=== PATIENT | female | born 1945 | race Caucasian/White ===

== ENCOUNTER → 2019-03-12 | Outpatient (CLI) | payer MEDICARE, OTHER ==
--- NOTE | 2019-03-12 10:06 | Diagnostic Imaging Report ---
Exam: Ultrasound abdomen limited. DATE: March 12, 2019. INDICATION: 73-year-old female, evaluation for umbilical hernia. COMPARISON: None. FINDINGS: Targeted ultrasound evaluation at the level of the umbilicus was performed. There appears to be an anterior abdominal wall hernia defect measured at approximately 1.1 cm in width. There is herniation of fat through the defect. There is no clear bowel wall signature identified. IMPRESSION: 1. There does appear to be a fat-containing umbilical hernia. Overall evaluation would be significantly improved with CT imaging if needed. Dictated by: Dictated on workstation # [id number]
== END ==
LOC: RAD 08:33
PROVIDERS: ATTEND Nurse Practitioner Family
DX: K42.9 Umbilical hernia without obstruction or gangrene (principal)
CPT/HCPCS: 76705

== ENCOUNTER → 2019-03-18 | Outpatient (CLI) | payer MEDICARE, OTHER ==
--- NOTE | 2019-03-18 12:35 | Diagnostic Imaging Report ---
EXAMINATION: CT low-dose lung cancer screening. INDICATION: [id number]-[id number] smoking history. TECHNIQUE: Routine images of the thorax were obtained using the CT low-dose lung cancer screening protocol. COMPARISON: There are no prior studies available for comparison. FINDINGS: There is scar formation in both lung apices. There are also pleural-based nodular densities along the periphery of each upper lobe. I suspect these findings are long-standing in nature. However, unless there are previous studies available for comparison, I would recommend that a six-month follow-up CT low-dose lung cancer screening exam be performed for further study. There is no parenchymal lung nodule identified otherwise. There is no evidence for failure, pneumonia, or for a pleural effusion to indicate an acute abnormality. The lungs are hyperexpanded, and this does suggest COPD. The heart size is within normal limits. Coronary artery calcifications are noted. The aorta is not abnormally dilated. There is no obvious mediastinal or hilar adenopathy. The thyroid gland is generally unremarkable. There is no mass involving the breasts where visualized. The sections through the upper abdomen fail to show any sign of an acute abnormality. The bone windows are unremarkable for a fracture or for a destructive lesion. IMPRESSION: 1. The scar formation in the lung apices and the pleural-based densities along the periphery of each upper lobe are most likely chronic in nature. A six-month follow-up CT chest exam would be recommended for further study. 2. There are emphysematous changes involving both lungs, but there is no sign of an acute cardiopulmonary abnormality. 3. The heart is not enlarged, but coronary artery calcifications are evident. LUNG-RADS CATEGORY: 3. Dictated by: Dictated on workstation # [id number]
== END ==
LOC: RAD 11:25
PROVIDERS: ATTEND Nurse Practitioner Family
DX: Z12.2 Encounter for screening for malignant neoplasm of respiratory organs (principal); J43.9 Emphysema, unspecified; J98.4 Other disorders of lung; F17.210 Nicotine dependence, cigarettes, uncomplicated

== ENCOUNTER → 2019-10-15 | Outpatient (CLI) | payer MEDICARE, OTHER ==
--- NOTE | 2019-10-15 16:41 | Diagnostic Imaging Report ---
CT Lung Screening INDICATION: [id number] smoker with smoking history. Current smoker, for six-month follow-up from an exam performed on 03/18/2019. TECHNIQUE: Noncontrast, low-dose CT imaging performed according to the lung cancer screening protocol. Auto Exposure Controls were utilize during the CT exam to meet ALARA standards for radiation dose reduction. COMPARISON: 03/18/2019. FINDINGS: Bilateral upper lobe predominantly apical pleural-parenchymal opacity stable and chronic likely scarring in this patient with symmetrical air trapping. No suspicious lung mass or dominant pulmonary nodule. No evidence for adenopathy. No acute pneumonia. Some minimal apical paraseptal cysts chronic. The aorta is nonaneurysmal. There were no findings of lymphadenopathy. No chest effusion. The visualized upper abdomen is nonacute. IMPRESSION: Stable chronic and benign findings as described. Low-dose CT screening follow-up in 12 months' time recommended 2A - Benign appearance or behavior. Solid nodule(s): <6mm OR new <4mm. Continue annual screening with LDCT in 12 months. Dictated by: Dictated on workstation # [id number]
== END ==
LOC: RAD 12:58
PROVIDERS: ATTEND Family Medicine
DX: Z12.2 Encounter for screening for malignant neoplasm of respiratory organs (principal); F17.210 Nicotine dependence, cigarettes, uncomplicated

== ENCOUNTER 2022-10-02 16:03 | Emergency (ER) | payer MEDICARE, OTHER ==
[~2022-10-02] VITALS: Ht 160 cm; Wt 57.0 kg
--- NOTE | 2022-10-02 16:23 | ED Hip Pain/Injury ---
General Stated Complaint: UNABLE TO WALK History of Present Illness Date Seen by Provider: October 02, 2022 Time Seen by Provider: 16:06 Initial Comments 76-year-old female with no significant past medical history except for arthritis and chronic back pain and chronic left hip pain, is brought in by EMS with complaints of left hip and back pain. Within the last 1 month patient has had an extensive work-up with Ortho and with her PCP which includes x-rays and MRI and course of steroid and Vicodin. Patient uses a walker at home to help her walk due to the pain. Patient rates her pain as 10 out of 10 and intermittently has radiation of the pain down her left leg which feels like shooting pain. Patient has been diagnosed with sciatica. Denies trauma, falls, injuries, fever and chills, bladder or bowel dysfunction, saddle anesthesia. Allergies and Home Medications Allergies Coded Allergies: No Known Drug Allergies (Unverified , 10/02/22) Patient Home Medication List Home Medication List Reviewed: Yes Review of Systems Constitutional: no symptoms reported EENTM: no symptoms reported Respiratory: no symptoms reported Cardiovascular: no symptoms reported Gastrointestinal: no symptoms reported Genitourinary: no symptoms reported Musculoskeletal: joint pain Skin: no symptoms reported Psychiatric/Neurological: No Symptoms Reported Physical Exam Vital Signs Vital Signs - First Documented 10/02/22 16:08 Temp 36.4 Pulse 86 Resp 18 B/P (MAP) 106/90 (95) Pulse Ox 97 O2 Delivery Room Air Capillary Refill : Height, Weight, BMI Height: '" Weight: lbs. oz. 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 No localized tenderness to the left hip upon palpation. Patient points to her piriformis area as to the area where she feels the pain typically with it shooting down her leg. ROM strict and only due to pain. N/V bundle intact. Straight leg test positive on the left. No saddle anesthesia. Progress/Results/Core Measures Results/Orders My Orders Orders - SALOME MOON MD Dexamethasone Injection (Decadron Inje (10/02/22 16:30) Ketorolac Injection (Toradol Injection) (10/02/22 16:30) Ketorolac Injection (Toradol Injection) (10/02/22 16:34) Dexamethasone Injection (Decadron Inje (10/02/22 16:35) Oxycodone/Apap 5/325mg Tablet (Percocet (10/02/22 17:45) Oxycodone/Apap 5/325mg Tablet (Percocet (10/02/22 17:54) Rx-Oxycodone/Apap 5-325 Mg (Rx-Percocet (10/02/22 18:45) Medications Given in ED Current Medications Medications Dose Ordered Sig/Ann Route Start Time Stop Time Status Last Admin Dose Admin Dexamethasone Sodium Phosphate 10 mg ONCE ONCE IV 10/02/22 16:30 10/02/22 16:34 DC 10/02/22 16:36 10 MG Ketorolac Tromethamine 15 mg ONCE ONCE IVP 10/02/22 16:30 10/02/22 16:34 DC 10/02/22 16:36 15 MG Oxycodone/ Acetaminophen 1 tab ONCE ONCE PO 10/02/22 17:45 10/02/22 17:54 DC 10/02/22 17:55 1 TAB Vital Signs/I&O 10/02/22 16:08 Temp 36.4 Pulse 86 Resp 18 B/P (MAP) 106/90 (95) Pulse Ox 97 O2 Delivery Room Air Progress Progress Note : Progress Note 1. LEFT SIDED SCIATICA WITH INTRACTABLE PAIN : - Pt has already had an extensive work-up with MRIs and x-rays with her PCP and with Ortho, so will not be doing images at this visit. Patient also does not want any imaging done due to multiple MRIs and x-rays she has had done very recently. - Toradol 15mg iv STAT - Dexa 10mg iv STAT - Percocet 5mg given later to assist with the pain - Pt'a pain has improved but not resolved. -Patient has been piecemeal in care with PCP and specialists from various hospitals, resulting in noncohesive care. Advised patient to stick to one hospital facility where she will be able to obtain all the specialists she needs. -No concern for red flags such as cord compression. - Attempted to transfer patient to multiple facilities ([facility], [facility], [facility]), but none of these facilities had beds available or the resources necessary for which the patient is in need of. Patient will be going home with a take-home pack of Percocet to be taken for severe pain. Advised to take 600 mg of ibuprofen every 6 hours as well, take with food. -Advised [id number] Lidoderm patch application to areas of pain. -Follow-up with PCP, Ortho, and pain management within the next 7 days. Advised to stick to one hospital facility if possible. -The patient was seen in the ED, and treated appropriately to presentation at a specific point in time. Patient is informed that there is a possibility that dis ease and illness can evolve and change in acuity rapidly or slowly after patient is discharged from the ER. Precautionary advice given to the patient for immediate return to ER if symptoms worsen or do not resolve, and to seek emergency care sooner rather than later. Pt also advised on the importance of PCP follow up and compliance with management and follow up plan with PCP and/or specialist, as this is part of the management plan. Pt verbally expressed understanding. Departure Impression Primary Impression: Left sided sciatica Disposition: 01 HOME, SELF-CARE Condition: Improved Departure-Patient Inst. Referrals: SHAILA FIERRO MD (PCP/Family) Primary Care Physician Patient Instructions: MANAGING YOUR CHRONIC PAIN, Sciatica, Sciatica Exercises, Sciatica (DC) Add. Discharge Instructions: Patient will be going home with a take-home pack of Percocet to be taken for severe pain. Advised to take 600 mg of ibuprofen every 6 hours as well, take with food. -Advised [id number] Lidoderm patch application to areas of pain. -Follow-up with PCP, Ortho, and pain management within the next 7 days. Advised to stick to one hospital facility if possible. SALOME MOON MD October 02, 2022 16:23
[2022-10-02] MEDS ORDERED: KETOROLAC 15 MG/ML VIAL IVP ONE (16:30)
[2022-10-02] MEDS ORDERED: KETOROLAC 15 MG/ML VIAL ONE (16:34)
[2022-10-02] MEDS ORDERED: oxyCODONE/APAP 5/325MG (PERCOCET 5) TABLET PO ONE (17:45)
[2022-10-02] MEDS ORDERED: oxyCODONE/APAP 5/325MG (PERCOCET 5) TABLET ONE (17:54)
[2022-10-02] MEDS ORDERED: RX-OXYCODONE/APAP 5-325 MG #4 TAB PK PO ONE (18:37)
[2022-10-02 18:42] VITALS: BP 115/84
[2022-10-02] MEDS ORDERED: RX-OXYCODONE/APAP 5-325 MG #4 TAB PK PO PRN (18:45)
== END 2022-10-02 18:44 | disposition home or self-care (01) ==
LOC: EDUNIT# 16:03 → ER FS 16:04
DX: M54.42 Lumbago with sciatica, left side (principal); G89.29 Other chronic pain